=== PATIENT | female | born 1960 | race Caucasian/White ===

== ENCOUNTER 2020-01-27 19:28 | Emergency (ER) | payer MEDICARE, MEDICAID ==
[~2020-01-27] VITALS: Ht 170.2 cm; Wt 95.0 kg
[2020-01-27 19:33] VITALS: BP 164/107
[2020-01-27] MEDS ORDERED: dexamethasone sod phosphate 10mg/ml inj PO STA (21:33)
== END 2020-01-27 21:45 | disposition home or self-care (01) ==
LOC: ER 19:28
DX: T63.441A Toxic effect of venom of bees, accidental (unintentional), initial encounter (principal); Z88.1 Allergy status to other antibiotic agents; Y92.89 Other specified places as the place of occurrence of the external cause
CPT/HCPCS: 99283; J1100